=== PATIENT | male | born 1965 | race Caucasian/White ===

== ENCOUNTER 2019-09-04 01:32 | Emergency (ER) | payer OTHER ==
[2019-09-04 02:22] VITALS: TEMP 97.7; BMI 25.7
--- NOTE | 2019-09-04 02:28 | PDOC ---
History of Present Illness - General Chief Complaint: Chest Pain Stated Complaint: CHEST PAIN Time Seen by Provider: 09/04/19 02:19 History Source: Patient Exam Limitations: No Limitations - History of Present Illness Initial Comments: 09/04/19 02:26 HPI: 53yo M smoker, arthritis, presenting with chest pain for 3 days. Patient endorses electric like pain that radiates up his arm to his shoulder and across his chest. Occurs madeleine 10-20 minutes, lasts 3 seconds before spontaneous resolution. "Exactly the same as last ED visit two months ago" did not follow up with PCP or lead systems analyst. Notes that the pains are similar to his back / left hip arthritis pains and often occur at the same time. Endorses maternal HTN, no other FHx of cardiac disease, no personal history of cardaic disease. Given ASA and Nitro by EMS - denies pain during EMS ride, no pain at present here in the ED. Wanted to go to bed, told him he should go be evaluated in the ED. All: PCN Meds: Denies PMH: As above PSH: Denies Past History - Travel History Traveled outside of the country in the last 30 days: No Close contact w/someone who was outside of country & ill: No - Medical History Allergies/Adverse Reactions: Allergies Allergy/AdvReac Type Severity Reaction Status Date / Time Penicillins Allergy Verified 09/04/19 02:14 Home Medications: Ambulatory Orders Aspirin [Ecotrin] 81 mg PO DAILY #30 tablet. 06/20/19 Atorvastatin Ca [Lipitor] 20 mg PO HS #30 tablet 06/20/19 CVA: No COPD: No CHF: No DVT: No - Psycho-Social/Smoking History Smoking History: Current every day smoker Have you smoked in the past 12 months: Yes Number of Cigarettes Smoked Daily: 8 Information on smoking cessation initiated: No - Substance Abuse Hx (Audit-C & DAST Scrn) How often the patient has a drink containing alcohol: Monthly or less Number of drinks the patient has on a typical day: 1 or 2 How often the patient has six or more drinks on one occasion: Less than monthly Score: In Men: 4 or > Positive; In Women: 3 or > Positive: 2 Screen Result (Pos requires Nsg. Audit-10AR): Negative In the last yr the pt used illegal drug/Rx for NonMed reason: No Score: Yes response is considered Positive: 0 Screen Result (Positive result requires Nsg. DAST-10): Negative Review of Systems - Review of Systems Able to Perform ROS?: Yes Is the patient limited Nauruan proficient: Yes Constitutional: No: Chills, Diaphoresis, Fever, Weakness HEENTM: No: Blurred Vision, Double Vision Respiratory: No: Cough, Shortness of Breath, Wheezing Cardiac (ROS): Yes: Chest Pain. No: Edema, Irregular Heart Rate, Lightheadedness, Palpitations, Syncope, Chest Tightness ABD/GI: No: Constipated, Diarrhea, Nausea, Vomiting : No: Burning, Dysuria, Frequency Musculoskeletal: Yes: See HPI, Back Pain, Muscle Pain. No: Muscle Weakness Integumentary: No: Bruising, Dryness, Erythema, Flushing Neurological: Yes: See HPI, Paresthesia. No: Headache, Numbness, Tingling, Weakness Psychiatric: No: Stressors, Change in Appetite Endocrine: No: Increased Thirst, Increased Urine Hematologic/Lymphatic: No: Anemia, Blood Clots, Easy Bleeding All Other Systems: Reviewed and Negative *Physical Exam - Vital Signs Last Vital Signs Temp Pulse Resp BP Pulse Ox 97.7 F 85 20 128/82 96 09/04/19 01:40 09/04/19 01:40 09/04/19 01:40 09/04/19 01:40 09/04/19 01:40 - Physical Exam 09/04/19 02:26 Vitals reviewed, AFS 09/04/19 02:47 GEN: Well appearing, appears stated age, NAD, comfortable. AAOx3. HEENT: NCAT, EOMI, PERRL. Sclera anicteric, noninjected. No facial asymmetry. Moist mucous membranes. Normal voice. Trachea midline. CV: RRR, S1/S2, no murmurs / rubs / gallops appreciated. Non-tender chest wall. LUNG: CTABL, normal work of breathing. No wheezes, rales, rhonchi. No cough. Speaking full sentences. GI: Soft, NTND, +BS, no guarding, no rebound. No masses. EXTREMITIES: 2+ distal pulses. No clubbing / cyanosis / edema. No gross deformity in any extremity. SKIN: Warm, dry, no rashes appreciated, non-jaundiced. PSYCH: Normal mood and affect. Cooperative and appropriate. NEURO: CN grossly intact. Moving all extremities well. Normal strength and sensation grossly. Heart Score/ECG Review - History History: Slightly suspicious - Electrocardiogram EKG: Normal - Age Age: 45-65 - Risk Factors Risk Factors Heart Score: Yes Smoking History Based on the list above the patient has:: 1-2 risk factors - Troponin Troponin: </= normal limit - Score Heart Score - Total: 2 ED Treatment Course - LABORATORY CBC & Chemistry Diagram: 09/04/19 03:07 09/04/19 03:07 Medical Decision Making - Medical Decision Making 09/04/19 02:27 53yo M smoker, arthritis, presenting with atypical arm and chest pain for 3 days. History notable for pain similar to arthritic pain, no prior ACS, recent in patient workup for "exact same pain." Exam with normal vitals, normal exam, non-tender chest wall, asymptomatic at present. HEART Score 2. DDX: r/o ACS, arthritis, nerve impingement ("electric shooting pain"), small pneumothorax. - CBC, CMP, Cardiac Profile, PT/PTT - EKG, CXR EKbpm, sinus, normal axis, normal intervals (QTc 443), no ischemic changes 09/04/19 04:27 - Chest xray unchanged since June film, no acute pathology - Labs unremarkable, baseline mild LFT elevation, negative troponin Dispo: Home with cardiology follow up 09/04/19 05:59 Patient resting comfortably in the department without pain Second Troponin negative Cardiology referral given Dispo: Home Discharge - Discharge Information Problems reviewed: Yes Clinical Impression/Diagnosis: Chest pain Qualifiers: Chest pain type: unspecified Qualified Code(s): R07.9 - Chest pain, unspecified Condition: Fair Disposition: HOME - Admission No - Follow up/Referral Referrals: Ailyn Solares MD [Primary Care Provider] - George Mejia MD [Staff Physician] - Faisal Henley MD [Staff Physician] - - Patient Discharge Instructions Patient Printed Discharge Instructions: DI for Atypical Chest Pain Additional Instructions: You were seen and evaluated for pain. Your workup was negative for emergent causes. Please continue your home medications as directed. You may take ibuprofen for your aches and pains as directed on the package label. Follow up with the referred lead systems analyst (two options, call the office for an appointment before Tuesday). Return to the ED for any new or concerning symptoms. - Post Discharge Activity
--- NOTE | 2019-09-04 02:37 | PDOC ---
Attending Attestation - Resident Resident Name: Laci García - ED Attending Attestation I have performed the following: I have examined & evaluated the patient, The case was reviewed & discussed with the resident, I agree w/resident's findings & plan - HPI HPI: 09/04/19 02:37 see resident hpi - Physicial Exam PE: 09/04/19 02:37 see resident exam - Medical Decision Making 09/04/19 05:14 53-year-old male with intermittent pain to the right upper extremity radiating to the chest as well as left lower extremity similar to previous episodes Chest pain is reproducible with certain activities/motions Patient does have a history of tobacco use He has been sleeping comfortably and chest pain-free in the emergency department when at rest EKG showed a normal sinus rhythm at 71 bpm with no acute ST elevations Rhythm strip shows a sinus rhythm at 70-75 bpm Chest x-ray shows no acute pulmonary disease Plan for cardiac enzymes x2, if negative will DC home with outpatient cardiology follow-up as pain is been intermittently present for 3 days Discharge - Discharge Information Problems reviewed: Yes Clinical Impression/Diagnosis: Chest pain Qualifiers: Chest pain type: unspecified Qualified Code(s): R07.9 - Chest pain, unspecified Condition: Fair Disposition: HOME - Follow up/Referral Referrals: Faisal Henley MD [Staff Physician] - Ailyn Solares MD [Primary Care Provider] - George Mejia MD [Staff Physician] - - Patient Discharge Instructions Patient Printed Discharge Instructions: DI for Atypical Chest Pain Additional Instructions: You were seen and evaluated for pain. Your workup was negative for emergent causes. Please continue your home medications as directed. You may take ibuprofen for your aches and pains as directed on the package label. Follow up with the referred jinrikisha driver (two options, call the office for an appointment before Tuesday). Return to the ED for any new or concerning symptoms. - Post Discharge Activity
[2019-09-04 03:17] LABS: BASO % 0.4 % (0-2.0); EOS % 6.5 % (0-4.5); HEMATOCRIT 41.2 % (35.4-49); HEMOGLOBIN 13.7 GM/dL (11.7-16.9); LYMPH % 31.2 % (8-40); MCH 30.8 pg (25.7-33.7); MCHC 33.2 g/dl (32.0-35.9); MEAN CELL VOLUME 92.9 fl (80-96); MEAN PLT VOLUME 9.4 fl (7.5-11.1); MONO % 11.3 % (3.8-10.2); NEUT % 50.6 % (42.8-82.8); PLATELET COUNT 190 K/MM3 (134-434); RBC 4.43 M/mm3 (4.00-5.60); RDW 14.4 % (11.9-15.9); WHITE BLOOD COUNT 6.5 K/mm3 (4.0-10.0)
[2019-09-04 04:00] LABS: ALBUMIN 3.6 g/dl (3.4-5.0); ALK PHOS 71 U/L (45-117); ANION GAP 9 MMOL/L (8-16); BILIRUBIN,TOTAL 0.4 mg/dL (0.2-1); BLOOD UREA NITROGEN 12.4 mg/dL (7-18); CALCIUM 8.7 mg/dL (8.5-10.1); CHLORIDE 108 mmol/L (98-107); CO2 24 mmol/L (21-32); GLUCOSE,RANDOM 91 mg/dL (74-106); POTASSIUM 3.6 mmol/L (3.5-5.1); SGOT/AST 39 U/L (15-37); SGPT/ALT 63 U/L (13-61); SODIUM 141 mmol/L (136-145); TOT PROT 7.3 g/dl (6.4-8.2)
[2019-09-04 07:16] VITALS: BP 122/100; PULSE 71
--- NOTE | 2019-09-04 12:05 | EKG ---
Test Reason : Blood Pressure : / mmHG Vent. Rate : 071 BPM Atrial Rate : 071 BPM P-R Int : 132 ms QRS Dur : 086 ms QT Int : 408 ms P-R-T Axes : 067 040 053 degrees QTc Int : 443 ms NORMAL SINUS RHYTHM NORMAL ECG WHEN COMPARED WITH ECG OF 20-JUN-2019 02:27, NO SIGNIFICANT CHANGE WAS FOUND Confirmed by Gus Carrillo MD ([id number]) on 09/04/2019 12:04:55 PM Referred By: Confirmed By:Gus Carrillo MD
== END 2019-09-04 06:40 | disposition home or self-care (01) ==
LOC: JER 01:32
DX: R07.9 Chest pain, unspecified (principal)
CPT/HCPCS: 36415; 71045-TC-FY; 80053; 82550; 82553; 84484; 85025; 93005; 93010; 99285-25

== ENCOUNTER 2024-10-12 06:12 | Day surgery (SDC) | payer OTHER ==
[2024-10-11 10:09] VITALS: BMI 25.7
[2024-10-12 07:06] VITALS: RESP 18
[2024-10-12] MEDS ORDERED: TRIAMCINOLONE ACET 40MG/1ML VIAL ONE (07:31)
[2024-10-12] MEDS ORDERED: BUPIVACAINE HCL/PF 0.5% (5MG/ML) 10 ML VIAL ONE (07:31)
[2024-10-12] MEDS ORDERED: BUPIVACAINE HCL/PF 0.25% (2.5MG/ML) 10 ML VIAL ONE (07:31)
[2024-10-12] MEDS ORDERED: LIDOCAINE HCL/PF 1% SDV 5ML VIAL ONE (07:32)
[2024-10-12 09:21] VITALS: BP 140/90; PULSE 78; TEMP 97.9
== END 2024-10-12 09:05 | disposition home or self-care (01) ==
LOC: JASU-SURG 06:12
PROVIDERS: ATTEND Pain Medicine Pain Medicine
PROC: 3E0U3BZ Introduction of Anesthetic Agent into Joints, Percutaneous Approach (ICD-10-PCS; 2024-10-12)
PROC: 3E0U33Z Introduction of Anti-inflammatory into Joints, Percutaneous Approach (ICD-10-PCS; principal; 2024-10-12 08:27)
DX: M16.11 Unilateral primary osteoarthritis, right hip (principal)
CPT/HCPCS: 76000-TC-FY